=== PATIENT | male | born 1945 | race Caucasian/White ===

== ENCOUNTER 2016-12-19 14:58 | Observation (INO) | payer BC ==
[~2016-12-19] VITALS: Ht 175.3 cm; Wt 103.0 kg
[2016-12-19] MEDS ORDERED: GLUCOPHAGE500 MG/TAB PO (15:42)
[2016-12-19] MEDS ORDERED: HCTZ12.5TAB PO (15:42)
[2016-12-19] MEDS ORDERED: FLOMAX 0.40.4 MG/CAP PO (15:42)
[2016-12-19] MEDS ORDERED: LIPITOR 10MG10 MG PO (15:42)
[2016-12-19 15:55] LABS: BASO # 0.1 (0.0-0.2); BASO % 0.7 % (0.0-2.0); EOS # 0.2 (0.0-0.7); EOS % 2.1 % (0-4.0); GRAN % 51.6 % (42.2-75.2); HEMATOCRIT 43.7 % (42.0-52.0); HEMOGLOBIN 15.4 g/dl (13.5-18.0); LYMPH # 2.8 (1.2-3.4); LYMPH % 37.1 % (20.0-51.0); MEAN CELL VOLUME 89 fl (80.0-100.0); MEAN CORPUSCULAR HEMOGLOBIN 31 pg (27.0-31.0); MEAN CORPUSCULAR HGB CONC 35 g/dl (33.0-37.0); MEAN PLATELET VOLUME 11.4 fl (7.4-10.4); MONO # 0.6 (0.1-0.6); MONO % 8.4 % (1.7-9.3); PLATELET COUNT 173 K/mm3 (130-400); RED BLOOD COUNT 4.93 M/mm3 (4.20-5.60); REDCELL DISTRIBUTION WIDTH-CV 11.9 % (11.5-14.5); WHITE BLOOD COUNT 7.7 K/mm3 (4.8-10.8)
[2016-12-19 16:01] LABS: PROTHROMBIN TIME 10.7 SECONDS (9.7-12.8)
[2016-12-19 16:04] LABS: PARTIAL THROMBOPLASTIN TIME 27.6 SECONDS (26.0-37.0)
[2016-12-19 16:31] LABS: ADJUSTED CALCIUM 9.8 mg/dL (8.4-10.2); ALANINE AMINOTRANSFERASE 46 U/L (21-72); ALBUMIN 4.2 gm/dL (3.5-5.0); ALKALINE PHOSPHATASE 91 U/L (50-136); ANION GAP 15 mmol/L (7-16); BILIRUBIN,TOTAL 0.7 mg/dL (0.0-1.0); BLOOD UREA NITROGEN 29 mg/dL (9-20); CARBON DIOXIDE 22 mmol/L (22-30); CHLORIDE 101 mmol/L (98-107); CREATININE, serum 1.26 mg/dL (0.66-1.25); GLUCOSE 117 mg/dL (74-106); POTASSIUM 4.1 mmol/L (3.4-5.0); SODIUM 138 mmol/L (137-145)
[2016-12-19 16:42] LABS: TROPONIN-I < 0.012 ng/mL (0.000-0.034)
[2016-12-19 16:44] LABS: ARTERIAL BLD GAS O2 SATURATION 96.7 % (92-100); ARTERIAL BLD GAS TCO2 CT 22.5; ARTERIAL BLOOD GAS BASE EXCESS -3.3 (-2-2); ARTERIAL BLOOD GAS HCO3 21.4 meq/L (22-26); ARTERIAL BLOOD GAS PO2 102.3 mmHg (80-100); ARTERIAL BLOOD GAS pH 7.38 (7.35-7.45); OXYHEMOGLOBIN 95.9 %
[2016-12-19 16:46] LABS: ATS? YES
[2016-12-19] MEDS ORDERED: TYLENOL W/COD1 UDTAB PO (18:07)
[2016-12-19] MEDS ORDERED: CEPHALEXIN500 M1 PO (18:07)
[2016-12-19] MEDS ORDERED: NORCO 325 MG-51 TAB PO (18:21)
[2016-12-19 20:17] VITALS: PULSE 76; TEMP 97.8
[2016-12-19] MEDS ORDERED: LEXAPRO20 MG PO (21:01)
[2016-12-20] VITALS (7 sets, daily range): BP systolic 81–117; BP diastolic 33–66; PULSE 50–91; TEMP 98.2–98.7
[2016-12-20 08:05] LABS: ADJUSTED CALCIUM 8.9 mg/dL (8.4-10.2); ALBUMIN 3.4 gm/dL (3.5-5.0); BILIRUBIN,TOTAL 0.8 mg/dL (0.0-1.0); CALCIUM 8.4 mg/dL (8.4-10.2); CREATININE, serum 1.06 mg/dL (0.66-1.25); POTASSIUM 4.1 mmol/L (3.4-5.0); TOTAL PROTEIN 5.8 gm/dL (6.4-8.2)
[2016-12-20] MEDS ORDERED: ZOVIRAX400 MG PO (13:41)
[2016-12-20] MEDS ORDERED: FLOMAX 0.40.4 MG/CAP PO (13:42)
[2016-12-20] MEDS ORDERED: LEVBID0.375 MG (13:42)
[2016-12-21 02:57] VITALS: BP 98/37; PULSE 60; TEMP 98.3
[2016-12-21 08:25] VITALS: BP 86/48; PULSE 53; TEMP 97.9
[2016-12-21 11:31] VITALS: BP 90/40; PULSE 49; TEMP 98.3
[2016-12-21 15:59] VITALS: BP 98/44; PULSE 47; TEMP 97.9
[2016-12-21 21:08] VITALS: BP 106/55; PULSE 58; TEMP 98
[2016-12-22 00:34] VITALS: BP 105/50; PULSE 50; TEMP 97.4
[2016-12-22 03:56] VITALS: BP 123/63; PULSE 54; TEMP 98.4
[2016-12-22 08:01] VITALS: BP 111/43; PULSE 45; TEMP 97.6
[2016-12-22] MEDS ORDERED: NORCO 325 MG-7.1 TAB PO (10:35)
[2016-12-22] MEDS ORDERED: ANTIVERT 12.512.5 MG PO (10:36)
[2016-12-22] MEDS ORDERED: ZOFRAN 4MG T4 MG/TAB PO (10:37)
== END 2016-12-22 12:21 | disposition home or self-care (01) ==
LOC: COL.ER 14:58 → MEDICAL 19:52
PROVIDERS: Emergency Medicine; Family Medicine
DX: R55 Syncope and collapse (principal); R42 Dizziness and giddiness; R51 Headache; I10 Essential (primary) hypertension; E11.9 Type 2 diabetes mellitus without complications; N40.0 Benign prostatic hyperplasia without lower urinary tract symptoms; F10.129 Alcohol abuse with intoxication, unspecified; E78.5 Hyperlipidemia, unspecified; Z95.818 Presence of other cardiac implants and grafts; Z96.652 Presence of left artificial knee joint; Z79.4 Long term (current) use of insulin
CPT/HCPCS: 99222-AI; 99232-AI; 99233-AI; 99239; G0378; G8978-GP; G8979-GP; G8987-GO; G8988-GO; J1885; J2405; J2765; J3010; J3411; J7030